=== PATIENT | female | born 1980 | race Caucasian/White ===

== ENCOUNTER 2016-10-17 13:41 | Emergency (ER) ==
[2016-10-17 13:50] VITALS: BP 139/88
--- NOTE | 2016-10-17 15:12 | Diag Imaging Result Document ---
PROCEDURE NAME: HAND COMPLETE RIGHT - 10/17/2016 RIGHT HAND, 3 VIEWS: FINDINGS: No fracture. No dislocation. Normal mineralization. No bone erosions. No subluxation. IMPRESSION: Negative exam.
--- NOTE | 2016-10-17 16:03 | PROVIDER DOCUMENTATION ---
HPI-Musculoskeletal Pain/Inj - GENERAL Chief Complaint: Extremity Injury Stated Complaint: FALL (TUESDAY) Time Seen by Provider: 10/17/16 15:58 Source: patient, family Departure - Departure Time of Disposition Order: 16:01 DIAGNOSIS: Contusion Qualifiers: Encounter type: initial encounter Contusion area: hand Laterality: right Qualified Code(s): S60.221A - Contusion of right hand, initial encounter Fall Qualifiers: Encounter type: initial encounter Qualified Code(s): W19.XXXA - Unspecified fall, initial encounter Disposition: HOME 01 Certified Medical Emergency: Emergent Condition: Stable Additional Instructions: ice and elevate for 20 minutes every 2-3 hours. motrin every 8 hours for pain and swelling. norco for pain in the evening. no drinking alcohol or driving while taking norco. follow up with orthopedics if not improving. ED Follow Up Instructions: You have been treated by a care provider in the Emergency Department. These instructions are being provided to you so you can have an understanding of how to care for yourself upon discharge. Upon discharge from the Emergency Department, you are responsible for making arrangements for follow-up care by a physician of your choice. Take all prescribed medications as directed. Return to the Emergency Department immediately for any new or worsening symptoms. You may call the Physician Referral phone number at [phone] to obtain a list of Physicians who are taking new patients. Prescriptions: Cyclobenzaprine [Flexeril] 10 mg PO TID #10 tablet Ibuprofen [Motrin] 800 mg PO Q8H PRN PRN #20 tablet PRN Reason: inflammation Hydrocodone/APAP 7.5 mg/325 mg [[place]-7.5] 1 each PO Q6H PRN PRN #10 tablet PRN Reason: Pain Famotidine [Pepcid] 20 mg PO DAILY #20 tablet Referrals: None,PCP [Primary Care Provider] - Jose Antonio Hennessy MD [STAFF PHYSICIAN] - Attestation - Physician/ SONIA Attestation Patient care was provided by Advanced Practice Provider:: Yes Advanced Practice Provider:: Mathieu Saunders Advanced Practice Provider documentation review:: The Mid-level provider documentation, treatment plan and medical decision making was reviewed by the physician who agrees with all treatment and medical decision making by the [facility].
== END 2016-10-17 16:23 | disposition home or self-care (01) ==
LOC: P.ED 13:41
DX: S60.221A Contusion of right hand, initial encounter (principal); M79.641 Pain in right hand; R22.31 Localized swelling, mass and lump, right upper limb; W19.XXXA Unspecified fall, initial encounter
CPT/HCPCS: 99283